=== PATIENT | female | born 1995 | race Caucasian/White ===

== ENCOUNTER 2022-01-13 16:54 | Inpatient (IN) | payer BC ==
[2022-01-13] MEDS ORDERED: Misoprostol 200 MCG TAB PR PRN (17:11)
[2022-01-13] MEDS ORDERED: Labetalol HCl 100 MG/20 ML VIAL SLOW IVP PRN ×2 (17:11)
[2022-01-13] MEDS ORDERED: Lactated Ringer's 1,000 ML IV SCH (17:11)
[2022-01-13] MEDS ORDERED: Ibuprofen 800 MG TAB PO PRN (17:11)
[2022-01-13] MEDS ORDERED: Lorazepam 2 MG/ML VIAL SLOW IVP PRN (17:11)
[2022-01-13] MEDS ORDERED: Diphenoxylate HCl/Atropine Tablet PO PRN ×2 (17:11)
[2022-01-13] MEDS ORDERED: Butorphanol Tartrate 1 MG/ML VIAL SLOW IVP PRN (17:11)
[2022-01-13] MEDS ORDERED: Lidocaine 1% (PF) 30 ML VIAL SC PRN (17:11)
[2022-01-13] MEDS ORDERED: Calcium Gluc 4.6 MEQ/10 ML (100 MG/ML) SLOW IVP PRN (17:11)
[2022-01-13] MEDS ORDERED: Acetaminophen 500 MG TAB PO PRN (17:11)
[2022-01-13] MEDS ORDERED: Promethazine HCl 25 MG/ML VIAL IM PRN (17:11)
[2022-01-13] MEDS ORDERED: Zolpidem Tartrate 5 MG TAB PO PRN ×2 (17:11→19:10)
[2022-01-13] MEDS ORDERED: HYDROcodone/Acetaminophen 5/325 mg Tablet PO PRN ×2 (17:11)
[2022-01-13] MEDS ORDERED: Ondansetron PF 4 MG/2 ML Vial IVP PRN (17:11)
[2022-01-13] MEDS ORDERED: hydrALAZINE 20 MG/ML VIAL SLOW IVP PRN ×3 (17:11)
[2022-01-13] MEDS ORDERED: NS w/ Oxytocin 30 units 500 ML IV SCH ×2 (17:11)
[2022-01-13] MEDS ORDERED: Docusate 100 MG CAP PO PRN (17:11)
[2022-01-13] MEDS ORDERED: Magnesium Sulfate 20 gm/500 ml 20 GM/500 ML BAG IVPB SCH (17:11)
[2022-01-13 17:53] VITALS: BMI 37.4
[2022-01-13 18:10] LABS: Hemoglobin 13.7 g/dL (12.0-15.5); Mean Corpuscular HGB CONC 34.6 g/dL (32.0-36.0); Mean Corpuscular Hemoglobin 29.2 pg (27.0-33.0); Mean Corpuscular Volume 84.4 fl (81.6-98.3); Mean Platelet Volume 10.5 fl (7.4-10.4); Platelet Count 212 10x3/uL (150-450); RBC Distribution Width 14.3 % (11.5-14.5); Red Blood Cell (RBC) Count 4.69 10x6/uL (3.90-5.03); White Blood Cell (WBC) Count 10.1 10x3/uL (3.5-10.5)
[2022-01-13 18:41] LABS: Syphilis Antibody Nonreactive (Nonreactive); Syphilis Antibody Index 0.03 S/CO (<1.00 Non-Reactive)
[2022-01-13 18:43] LABS: HIV (1/2) Antibody/Antigen Non-Reactive (NonReactive); HIV 1/2 INDEX 0.08 S/CO (<1.00); Hep B Surf Ag Non-Reactive S/CO (NonReactive)
[2022-01-13 18:47] LABS: HBSAg Index 0.21 S/CO (0-0.99)
[2022-01-13 20:07] LABS: SARS-CoV-2 NAA Rapid Test Not Detected (NotDetected)
[2022-01-13] MEDS ORDERED: Labetalol HCl 200 MG TAB PO SCH (21:00)
[2022-01-14] MEDS ORDERED: Fentanyl 2 mcg/Bup 0.1% Cadd 100 ML ONE ×2 (07:04→08:23)
[2022-01-14] MEDS ORDERED: Ondansetron PF 4 MG/2 ML Vial IVP PRN ×2 (09:34→21:10)
[2022-01-14] MEDS ORDERED: Promethazine HCl 25 MG/ML VIAL IM PRN (09:34)
[2022-01-14] MEDS ORDERED: Naloxone HCl 0.4 mg/ml Vial IVP PRN ×2 (09:34)
[2022-01-14] MEDS ORDERED: Lactated Ringer's 500 ML IV PRN (09:34)
[2022-01-14] MEDS ORDERED: diphenhydrAMINE 50 MG/ML VIAL IVP PRN (09:34)
[2022-01-14] MEDS ORDERED: ePHEDrine Sulfate 50 MG/10 ML VIAL SLOW IVP PRN (09:34)
[2022-01-14] MEDS ORDERED: Moisturizing Cream (Eucerin) 113 GM JAR TOP PRN (09:34)
[2022-01-14] MEDS ORDERED: Acetaminophen 325 MG TAB PO PRN ×2 (09:34→21:12)
[2022-01-14] MEDS ORDERED: Communication Order-Pharmacy FS SCH (09:45)
[2022-01-14] MEDS ORDERED: Fentanyl 2 mcg/Bupivacaine 0.1% Cassette 100 ML EPIDURAL SCH (09:45)
[2022-01-14] MEDS ORDERED: Erythromycin Base 0.5% Oint 1 GM TUBE ONE (20:55)
[2022-01-14] MEDS ORDERED: Phytonadione Neonatal 1 MG/0.5 ML AMP ONE (20:55)
[2022-01-14] MEDS ORDERED: Bisacodyl 10 MG SUPP PR PRN (21:10)
[2022-01-14] MEDS ORDERED: Zolpidem Tartrate 5 MG TAB PO PRN (21:10)
[2022-01-14] MEDS ORDERED: diphenhydrAMINE 25 MG CAP PO PRN (21:10)
[2022-01-14] MEDS ORDERED: Misoprostol 200 MCG TAB VAG PRN (21:10)
[2022-01-14] MEDS ORDERED: Milk Of Magnesia 30 ML UDCUP PO PRN (21:10)
[2022-01-14] MEDS ORDERED: Boostrix 0.5 ML (Tdap) VIAL IM ONE (21:10)
[2022-01-14] MEDS ORDERED: HYDROcodone/Acetaminophen 5/325 mg Tablet PO PRN ×2 (21:10)
[2022-01-14] MEDS ORDERED: Benzocaine-Menthol 82.5 ML CAN TOP PRN (21:10)
[2022-01-14] MEDS ORDERED: Preparation H Ointment 28 GM TUBE PR PRN (21:10)
[2022-01-14] MEDS ORDERED: Lanolin Ointment 7 GM TUBE TOP PRN (21:10)
[2022-01-14] MEDS ORDERED: hydrALAZINE 20 MG/ML VIAL SLOW IVP PRN (21:10)
[2022-01-14] MEDS ORDERED: Witch Hazel-Glycerin 1 EACH JAR TOP PRN (21:12)
[2022-01-14] MEDS ORDERED: NS w/ Oxytocin 30 units 500 ML IV SCH (21:15)
[2022-01-14] MEDS: Ibuprofen 800 MG TAB PO SCH (21:42)
[2022-01-15 04:04] LABS: Hemoglobin 12.2 g/dL (12.0-15.5); Mean Corpuscular HGB CONC 34.4 g/dL (32.0-36.0); Mean Corpuscular Hemoglobin 29.6 pg (27.0-33.0); Mean Corpuscular Volume 86.2 fl (81.6-98.3); Mean Platelet Volume 10.7 fl (7.4-10.4); Platelet Count 181 10x3/uL (150-450); RBC Distribution Width 13.9 % (11.5-14.5); Red Blood Cell (RBC) Count 4.12 10x6/uL (3.90-5.03); White Blood Cell (WBC) Count 17.1 10x3/uL (3.5-10.5)
[2022-01-15] MEDS: Ibuprofen 800 MG TAB PO SCH ×3 (05:35→21:45)
[2022-01-15] MEDS: Ferrous Sulfate 325 MG TAB PO SCH ×2 (08:04→15:41)
[2022-01-15] MEDS: Docusate 100 MG CAP PO SCH ×2 (09:10→21:45)
[2022-01-15] MEDS: Prenatal Vitamin 1 TAB PO SCH (09:10)
[2022-01-16] MEDS: Ibuprofen 800 MG TAB PO SCH ×2 (05:26→14:24)
[2022-01-16] MEDS: Ferrous Sulfate 325 MG TAB PO SCH (07:41)
[2022-01-16] MEDS: Docusate 100 MG CAP PO SCH (08:31)
[2022-01-16] MEDS: Prenatal Vitamin 1 TAB PO SCH (08:31)
[2022-01-16 11:47] VITALS: BP 128/71; TEMP 98
== END 2022-01-16 14:40 | disposition home or self-care (01) | DRG 806 ==
LOC: CSHLD 16:54 → CSHPP 01-14 23:40
PROVIDERS: ADMIT Obstetrics & Gynecology; ATTEND Obstetrics & Gynecology
PROC: 10D07Z6 Extraction of Products of Conception, Vacuum, Via Natural or Artificial Opening (ICD-10-PCS; principal; 2022-01-14)
PROC: 0KQM0ZZ Repair Perineum Muscle, Open Approach (ICD-10-PCS; 2022-01-14)
PROC: 0W8NXZZ Division of Female Perineum, External Approach (ICD-10-PCS; 2022-01-14)
DX: O13.4 Gestational [pregnancy-induced] hypertension without significant proteinuria, complicating childbirth (principal); O98.52 Other viral diseases complicating childbirth; Z37.0 Single live birth; Z20.822 Contact with and (suspected) exposure to COVID-19; Z88.2 Allergy status to sulfonamides; Z3A.39 39 weeks gestation of pregnancy; B00.9 Herpesviral infection, unspecified; F41.9 Anxiety disorder, unspecified; O99.344 Other mental disorders complicating childbirth; Z86.16 Personal history of COVID-19; Z90.89 Acquired absence of other organs; Z79.82 Long term (current) use of aspirin; Z79.899 Other long term (current) drug therapy; O32.8XX0 Maternal care for other malpresentation of fetus, not applicable or unspecified; O76 Abnormality in fetal heart rate and rhythm complicating labor and delivery; O70.1 Second degree perineal laceration during delivery
CPT/HCPCS: 36415; 51702; 85027; 86780; 86850; 86900; 86901; 87340; 87389; J2405; J2590; U0002